=== PATIENT | female | born 1995 | race Caucasian/White ===

== ENCOUNTER 2017-12-22 12:15 | Inpatient (IN) | payer OTHER ==
[2017-12-22] MEDS: LACTATED RINGER'S 1,000 ML IV (13:55)
[2017-12-22] MEDS: BETAMET NA PHOS/AC(6 MG/ML) 5ML INJ IM (13:57)
[2017-12-22] MEDS ORDERED: AL HYDROX/MG HYDROX/SIMETH 30 ML CUP PO (14:00)
[2017-12-22] MEDS: MAGNESIUM SULFATE 4 GM/100 ML 100 ML IV (14:02)
[2017-12-22] MEDS: MAGNESIUM SULFATE 20 GM/500 ML 500 ML IV (14:28)
[2017-12-22 14:59] LABS: ADD UMIC NO; UR ASCORBIC ACID 40 mg/dL (NEGATIVE); UR BILIRUBIN (Dip) NEGATIVE (NEGATIVE); UR BLOOD (Dip) NEGATIVE (NEGATIVE); UR CLARITY CLEAR (CLEAR); UR COLOR STRAW (YELLOW); UR GLUCOSE (Dip) NEGATIVE (NEGATIVE); UR KETONES (Dip) 1+ mg/dL (NEGATIVE); UR LEUKOCYTE ESTERASE (Dip) NEGATIVE Leu/ul (NEGATIVE); UR NITRITE (Dip) NEGATIVE (NEGATIVE); UR SPECIFIC GRAVITY (Dip) 1.009 (1.003-1.030); UR TOTAL PROTEIN (Dip) NEGATIVE (NEGATIVE); UR UROBILINOGEN (Dip) NEGATIVE (NEGATIVE)
[2017-12-22 18:28] LABS: MAGNESIUM 3.9 mg/dl (1.7-2.5)
[2017-12-22] MEDS: DOCUSATE SODIUM 100 MG CAP PO (21:34)
[2017-12-23 00:28] LABS: MAGNESIUM 4.4 mg/dl (1.7-2.5)
[2017-12-23] MEDS: MAGNESIUM SULFATE 20 GM/500 ML 500 ML IV ×3 (00:39→18:50)
[2017-12-23] MEDS: LACTATED RINGER'S 1,000 ML IV ×2 (00:46→13:39)
[2017-12-23] MEDS: DOCUSATE SODIUM 100 MG CAP PO ×2 (08:19→20:25)
[2017-12-23] MEDS: PRENATAL VITAMIN PO (08:19)
[2017-12-23] MEDS: ACETAMINOPHEN 325 MG TAB PO (09:45)
[2017-12-23 13:22] LABS: MAGNESIUM 5.1 mg/dl (1.7-2.5)
[2017-12-23] MEDS: BETAMET NA PHOS/AC(6 MG/ML) 5ML INJ IM (13:38)
[2017-12-23 18:51] LABS: MAGNESIUM 4.6 mg/dl (1.7-2.5)
[2017-12-24 00:21] LABS: MAGNESIUM 4.6 mg/dl (1.7-2.5)
[2017-12-24] MEDS: LACTATED RINGER'S 1,000 ML IV ×2 (02:04→15:13)
[2017-12-24] MEDS: MAGNESIUM SULFATE 20 GM/500 ML 500 ML IV (03:53)
[2017-12-24] MEDS: DOCUSATE SODIUM 100 MG CAP PO ×2 (09:26→21:30)
[2017-12-24] MEDS: PRENATAL VITAMIN PO (09:27)
[2017-12-24] MEDS ORDERED: NIFEdipine 10 MG CAP PO (21:00)
[2017-12-24] MEDS: NIFEdipine 10 MG CAP PO (23:34)
[2017-12-25] MEDS: NIFEdipine 10 MG CAP PO ×4 (06:17→23:49)
[2017-12-25] MEDS: PRENATAL VITAMIN PO (08:57)
[2017-12-25] MEDS: DOCUSATE SODIUM 100 MG CAP PO ×2 (08:57→21:05)
[2017-12-26] MEDS: NIFEdipine 10 MG CAP PO ×3 (05:43→18:30)
[2017-12-26] MEDS: PRENATAL VITAMIN PO (08:38)
[2017-12-26] MEDS: DOCUSATE SODIUM 100 MG CAP PO ×2 (08:39→21:05)
[2017-12-27] MEDS: NIFEdipine 10 MG CAP PO ×4 (05:52→19:18)
[2017-12-27] MEDS: PRENATAL VITAMIN PO (08:41)
[2017-12-27] MEDS: DOCUSATE SODIUM 100 MG CAP PO ×2 (08:41→21:00)
[2017-12-28] MEDS: NIFEdipine 10 MG CAP PO ×5 (00:32→23:52)
[2017-12-28] MEDS: PRENATAL VITAMIN PO (09:23)
[2017-12-28] MEDS: DOCUSATE SODIUM 100 MG CAP PO ×2 (09:23→21:15)
[2017-12-29] MEDS: NIFEdipine 10 MG CAP PO ×4 (05:44→23:43)
[2017-12-29] MEDS: DOCUSATE SODIUM 100 MG CAP PO ×2 (08:15→21:10)
[2017-12-29] MEDS: PRENATAL VITAMIN PO (08:15)
[2017-12-30] MEDS: NIFEdipine 10 MG CAP PO ×4 (05:37→23:53)
[2017-12-30] MEDS: DOCUSATE SODIUM 100 MG CAP PO ×2 (08:41→21:14)
[2017-12-30] MEDS: PRENATAL VITAMIN PO (08:41)
[2017-12-31] MEDS: NIFEdipine 10 MG CAP PO ×3 (05:52→18:18)
[2017-12-31] MEDS: PRENATAL VITAMIN PO (09:06)
[2017-12-31] MEDS: DOCUSATE SODIUM 100 MG CAP PO ×2 (09:06→21:14)
[2017-12-31] MEDS: CALCIUM/VITAMIN D (500/200) TAB PO (21:14)
[2017-12-31] MEDS: FERROUS SULFATE (EC) 325 MG TAB PO (21:14)
[2018-01-01] MEDS: NIFEdipine 10 MG CAP PO ×4 (00:05→18:32)
[2018-01-01] MEDS: DOCUSATE SODIUM 100 MG CAP PO ×2 (08:43→21:18)
[2018-01-01] MEDS: PRENATAL VITAMIN PO (08:43)
[2018-01-01] MEDS: FERROUS SULFATE (EC) 325 MG TAB PO (21:18)
[2018-01-01] MEDS: CALCIUM/VITAMIN D (500/200) TAB PO (21:18)
[2018-01-02] MEDS: NIFEdipine 10 MG CAP PO ×4 (00:02→18:07)
[2018-01-02] MEDS: PRENATAL VITAMIN PO (08:32)
[2018-01-02] MEDS: DOCUSATE SODIUM 100 MG CAP PO ×2 (08:32→21:10)
[2018-01-02 15:27] LABS: ADD UMIC YES; UR ASCORBIC ACID NEGATIVE (NEGATIVE); UR BILIRUBIN (Dip) NEGATIVE (NEGATIVE); UR BLOOD (Dip) 1+ mg/dL (NEGATIVE); UR CLARITY CLEAR (CLEAR); UR COLOR STRAW (YELLOW); UR GLUCOSE (Dip) NEGATIVE (NEGATIVE); UR KETONES (Dip) TRACE mg/dL (NEGATIVE); UR LEUKOCYTE ESTERASE (Dip) NEGATIVE Leu/ul (NEGATIVE); UR NITRITE (Dip) NEGATIVE (NEGATIVE); UR RBC 0 /HPF (0-5); UR SPECIFIC GRAVITY (Dip) 1.004 (1.003-1.030); UR TOTAL PROTEIN (Dip) NEGATIVE (NEGATIVE); UR UROBILINOGEN (Dip) NEGATIVE (NEGATIVE); UR WBC 1 /HPF (0-5)
[2018-01-02 15:55] LABS: RUPTURE FETAL MEMBRANES NEGATIVE (NEGATIVE)
[2018-01-02] MEDS: FERROUS SULFATE (EC) 325 MG TAB PO (21:10)
[2018-01-02] MEDS: CALCIUM/VITAMIN D (500/200) TAB PO (21:11)
[2018-01-03] MEDS: NIFEdipine 10 MG CAP PO ×5 (00:09→23:51)
[2018-01-03] MEDS: PRENATAL VITAMIN PO (08:48)
[2018-01-03] MEDS: DOCUSATE SODIUM 100 MG CAP PO ×2 (08:48→21:40)
[2018-01-03] MEDS: CALCIUM/VITAMIN D (500/200) TAB PO (21:40)
[2018-01-03] MEDS: FERROUS SULFATE (EC) 325 MG TAB PO (21:40)
[2018-01-04] MEDS: NIFEdipine 10 MG CAP PO ×4 (06:00→23:54)
[2018-01-04] MEDS: PRENATAL VITAMIN PO (10:04)
[2018-01-04] MEDS: DOCUSATE SODIUM 100 MG CAP PO ×2 (10:04→21:12)
[2018-01-04] MEDS: CALCIUM/VITAMIN D (500/200) TAB PO (21:12)
[2018-01-04] MEDS: FERROUS SULFATE (EC) 325 MG TAB PO (21:12)
[2018-01-05] MEDS: NIFEdipine 10 MG CAP PO ×3 (05:43→18:01)
[2018-01-05] MEDS: PRENATAL VITAMIN PO (08:23)
[2018-01-05] MEDS: DOCUSATE SODIUM 100 MG CAP PO ×2 (08:23→21:23)
[2018-01-05] MEDS: FERROUS SULFATE (EC) 325 MG TAB PO (21:23)
[2018-01-05] MEDS: CALCIUM/VITAMIN D (500/200) TAB PO (21:23)
[2018-01-06] MEDS: NIFEdipine 10 MG CAP PO ×5 (00:08→23:52)
[2018-01-06] MEDS: DOCUSATE SODIUM 100 MG CAP PO ×2 (08:14→21:13)
[2018-01-06] MEDS: PRENATAL VITAMIN PO (08:14)
[2018-01-06] MEDS: CALCIUM/VITAMIN D (500/200) TAB PO (21:13)
[2018-01-06] MEDS: FERROUS SULFATE (EC) 325 MG TAB PO (21:13)
[2018-01-07] MEDS: NIFEdipine 10 MG CAP PO ×3 (05:50→19:10)
[2018-01-07] MEDS: DOCUSATE SODIUM 100 MG CAP PO ×2 (08:54→21:19)
[2018-01-07] MEDS: PRENATAL VITAMIN PO (08:54)
[2018-01-07] MEDS: FERROUS SULFATE (EC) 325 MG TAB PO (21:19)
[2018-01-07] MEDS: CALCIUM/VITAMIN D (500/200) TAB PO (21:19)
[2018-01-08] MEDS: NIFEdipine 10 MG CAP PO ×5 (00:40→23:45)
[2018-01-08] MEDS: PRENATAL VITAMIN PO (09:25)
[2018-01-08] MEDS: DOCUSATE SODIUM 100 MG CAP PO ×2 (09:25→21:01)
[2018-01-08] MEDS: FERROUS SULFATE (EC) 325 MG TAB PO (21:01)
[2018-01-08] MEDS: CALCIUM/VITAMIN D (500/200) TAB PO (21:02)
[2018-01-09] MEDS: NIFEdipine 10 MG CAP PO ×4 (05:48→23:36)
[2018-01-09] MEDS: DOCUSATE SODIUM 100 MG CAP PO ×2 (09:03→20:52)
[2018-01-09] MEDS: PRENATAL VITAMIN PO (09:03)
[2018-01-09] MEDS: FERROUS SULFATE (EC) 325 MG TAB PO (20:52)
[2018-01-09] MEDS: CALCIUM/VITAMIN D (500/200) TAB PO (20:52)
[2018-01-10] MEDS: NIFEdipine 10 MG CAP PO ×3 (06:18→17:38)
[2018-01-10] MEDS: PRENATAL VITAMIN PO (08:20)
[2018-01-10] MEDS: DOCUSATE SODIUM 100 MG CAP PO ×2 (08:20→20:57)
[2018-01-10] MEDS: FERROUS SULFATE (EC) 325 MG TAB PO (20:57)
[2018-01-10] MEDS: CALCIUM/VITAMIN D (500/200) TAB PO (20:57)
[2018-01-11] MEDS: NIFEdipine 10 MG CAP PO ×5 (00:12→23:54)
[2018-01-11] MEDS: PRENATAL VITAMIN PO (08:49)
[2018-01-11] MEDS: DOCUSATE SODIUM 100 MG CAP PO ×2 (08:49→21:21)
[2018-01-11] MEDS: CALCIUM/VITAMIN D (500/200) TAB PO (21:21)
[2018-01-11] MEDS: FERROUS SULFATE (EC) 325 MG TAB PO (21:21)
[2018-01-12] MEDS: NIFEdipine 10 MG CAP PO ×3 (05:44→18:39)
[2018-01-12] MEDS: PRENATAL VITAMIN PO (10:00)
[2018-01-12] MEDS: DOCUSATE SODIUM 100 MG CAP PO (10:00)
== END 2018-01-12 20:45 | disposition home or self-care (01) | DRG 782 ==
LOC: OBT 12:15 → L-D 12:19 → OBT 13:29 → PP1 13:32
DX: O26.872 Cervical shortening, second trimester (principal); Z3A.23 23 weeks gestation of pregnancy
CPT/HCPCS: 76815; 76817; 81001; 81003; 83735; 84112; 87086

== ENCOUNTER 2018-01-19 20:28 | Outpatient (CLI) | payer OTHER ==
[2018-01-19 21:53] LABS: ADD UMIC YES; UR ASCORBIC ACID NEGATIVE (NEGATIVE); UR BILIRUBIN (Dip) NEGATIVE (NEGATIVE); UR BLOOD (Dip) 2+ mg/dL (NEGATIVE); UR CLARITY SLIGHTLY CLOUDY (CLEAR); UR COLOR YELLOW (YELLOW); UR GLUCOSE (Dip) NEGATIVE (NEGATIVE); UR KETONES (Dip) NEGATIVE (NEGATIVE); UR LEUKOCYTE ESTERASE (Dip) NEGATIVE Leu/ul (NEGATIVE); UR NITRITE (Dip) NEGATIVE (NEGATIVE); UR RBC 3 /HPF (0-5); UR SQUAMOUS EPITHELIAL CELL FEW /HPF (FEW); UR TOTAL PROTEIN (Dip) NEGATIVE (NEGATIVE); UR UROBILINOGEN (Dip) NEGATIVE (NEGATIVE); UR WBC 2 /HPF (0-5)
[2018-01-19 22:38] LABS: RUPTURE FETAL MEMBRANES NEGATIVE (NEGATIVE)
== END 2018-01-19 23:31 | disposition home or self-care (01) ==
LOC: OBT 20:28 → L-D 20:29 → OBT 23:31
DX: O42.912 Preterm premature rupture of membranes, unspecified as to length of time between rupture and onset of labor, second trimester (principal); Z3A.27 27 weeks gestation of pregnancy
CPT/HCPCS: 76817; 76818; 81001; 84112

== ENCOUNTER 2018-03-26 11:45 | Inpatient (IN) | payer OTHER ==
[2018-03-26] MEDS: LACTATED RINGER'S 1,000 ML IV ×3 (13:13→21:04)
[2018-03-26] MEDS: NIFEdipine 10 MG CAP PO (17:46)
[2018-03-27] MEDS: NIFEdipine 10 MG CAP PO ×3 (00:34→11:50)
[2018-03-27] MEDS: LACTATED RINGER'S 1,000 ML IV ×2 (03:54→10:36)
[2018-03-27] MEDS: PRENATAL VITAMIN PO (09:19)
== END 2018-03-27 12:30 | disposition home or self-care (01) | DRG 782 ==
LOC: L-D 11:45
DX: O41.03X0 Oligohydramnios, third trimester, not applicable or unspecified (principal); O13.3 Gestational [pregnancy-induced] hypertension without significant proteinuria, third trimester; Z3A.36 36 weeks gestation of pregnancy
CPT/HCPCS: 76815

== ENCOUNTER 2018-03-30 17:26 | Outpatient (CLI) | payer OTHER ==
[2018-03-30 19:55] LABS: ADD MAN DIFF? NO
[2018-03-30 20:04] LABS: WHITE BLOOD COUNT 10.3 10^3/ul (4.8-10.8)
[2018-03-30 20:04] LABS: BASOPHILS % 0.3 % (0.0-2.0); EOSINOPHILS % 0.3 % (0.0-7.0); HEMOGLOBIN 12.3 g/dl (12.0-16.0); LYMPHOCYTES # 2.8 10^3/ul (0.8-2.9); LYMPHOCYTES % 27.2 % (15.0-51.0); MEAN CORPUSCULAR HEMOGLOBIN 30.1 pg (29.0-33.0); MEAN CORPUSCULAR HGB CONC 33.2 g/dl (32.0-37.0); MEAN CORPUSCULAR VOLUME 90.5 fl (82.0-101.0); MEAN PLATELET VOLUME 10.4 fl (7.4-10.4); MONOCYTE # 0.7 10^3/ul (0.3-0.9); MONOCYTES % 6.9 % (0.0-11.0); NEUTROPHIL # 6.6 10^3/ul (1.6-7.5); NEUTROPHILS % 64.3 % (39.0-77.0); PLATELET COUNT 279 10^3/UL (140-415); RED BLOOD COUNT 4.09 10^6/ul (4.20-5.40); RED CELL DISTRIBUTION WIDTH 13.8 % (11.5-14.5)
[2018-03-30 20:11] LABS: ADD UMIC NO; UR ASCORBIC ACID NEGATIVE (NEGATIVE); UR BILIRUBIN (Dip) NEGATIVE (NEGATIVE); UR BLOOD (Dip) NEGATIVE (NEGATIVE); UR CLARITY CLEAR (CLEAR); UR COLOR YELLOW (YELLOW); UR GLUCOSE (Dip) NEGATIVE (NEGATIVE); UR KETONES (Dip) NEGATIVE (NEGATIVE); UR LEUKOCYTE ESTERASE (Dip) NEGATIVE Leu/ul (NEGATIVE); UR NITRITE (Dip) NEGATIVE (NEGATIVE); UR SPECIFIC GRAVITY (Dip) 1.014 (1.003-1.030); UR TOTAL PROTEIN (Dip) NEGATIVE (NEGATIVE); UR UROBILINOGEN (Dip) NEGATIVE (NEGATIVE)
[2018-03-30 20:19] LABS: ALANINE AMINOTRANSFERASE 14 IU/L (13-69); ALBUMIN 3.4 g/dl (3.3-4.9); ALBUMIN/GLOBULIN RATIO 1.09; ALKALINE PHOSPHATASE 227 IU/L (42-121); ANION GAP 11 (8-16); ASPARTATE AMINO TRANSFERASE 14 IU/L (15-46); BILIRUBIN,INDIRECT 0.3 mg/dl (0-1.1); BILIRUBIN,TOTAL 0.3 mg/dl (0.2-1.3); BLOOD UREA NITROGEN 11 mg/dl (7-20); CARBON DIOXIDE 23 mmol/L (21-31); CHLORIDE 108 mmol/L (97-110); CREATININE 0.53 mg/dl (0.44-1.00); GLUCOSE 77 mg/dl (70-220); SODIUM 138 mmol/L (135-144); TOTAL PROTEIN 6.5 g/dl (6.1-8.1); URIC ACID 4.7 mg/dl (3.1-7.9)
[2018-03-30] MEDS: NIFEdipine 10 MG CAP PO (21:13)
== END 2018-03-30 22:17 | disposition home or self-care (01) ==
LOC: OBT 17:26 → L-D 17:27 → OBT 22:17
DX: O76 Abnormality in fetal heart rate and rhythm complicating labor and delivery (principal); Z3A.37 37 weeks gestation of pregnancy
CPT/HCPCS: 80053; 81003; 84560; 85025

== ENCOUNTER 2018-03-31 15:30 | Outpatient (CLI) | payer OTHER | END 2018-03-31 17:39 | disposition home or self-care (01) | LOC: OBT 15:30 → L-D 15:32 → OBT 17:39 | DX: O36.8330 Maternal care for abnormalities of the fetal heart rate or rhythm, third trimester, not applicable or unspecified (principal); Z3A.37 37 weeks gestation of pregnancy | CPT/HCPCS: Z7500 ==

== ENCOUNTER 2018-04-01 11:18 | Inpatient (IN) | payer OTHER ==
[2018-04-01] MEDS ORDERED: METHYLERGONOVINE 0.2 MG INJ IM (12:00)
[2018-04-01] MEDS ORDERED: CARBOPROST 250 MCG INJ IM (12:00)
[2018-04-01] MEDS ORDERED: OXYTOCIN 30 UNITS/LR 500 ML IV (12:00)
[2018-04-01] MEDS ORDERED: MISOPROSTOL 200 MCG TAB PR (12:00)
[2018-04-01] MEDS ORDERED: LIDOCAINE 1% (MPF) 30 ML INJ INJ (12:00)
[2018-04-01] MEDS ORDERED: MISOPROSTOL 100 MCG TAB PO (13:00)
[2018-04-01] MEDS: LACTATED RINGER'S 1,000 ML IV* ×2 (13:04→21:26)
[2018-04-01] MEDS: AMPICILLIN 2 GM/NS (PMX) 100 ML IVPB (13:04)
[2018-04-01] MEDS: MISOPROSTOL 25 MCG CAPSULE PO ×3 (13:05→21:54)
[2018-04-01 13:15] LABS: ADD UMIC NO; UR ASCORBIC ACID NEGATIVE (NEGATIVE); UR BILIRUBIN (Dip) NEGATIVE (NEGATIVE); UR BLOOD (Dip) NEGATIVE (NEGATIVE); UR CLARITY CLEAR (CLEAR); UR COLOR YELLOW (YELLOW); UR GLUCOSE (Dip) NEGATIVE (NEGATIVE); UR KETONES (Dip) NEGATIVE (NEGATIVE); UR LEUKOCYTE ESTERASE (Dip) NEGATIVE Leu/ul (NEGATIVE); UR NITRITE (Dip) NEGATIVE (NEGATIVE); UR SPECIFIC GRAVITY (Dip) 1.012 (1.003-1.030); UR TOTAL PROTEIN (Dip) NEGATIVE (NEGATIVE); UR UROBILINOGEN (Dip) NEGATIVE (NEGATIVE)
[2018-04-01 13:19] LABS: ADD MAN DIFF? NO
[2018-04-01 13:25] LABS: WHITE BLOOD COUNT 10.7 10^3/ul (4.8-10.8)
[2018-04-01 13:25] LABS: BASOPHILS % 0.3 % (0.0-2.0); EOSINOPHILS # 0.1 10^3/ul (0.0-0.5); EOSINOPHILS % 0.5 % (0.0-7.0); HEMATOCRIT 37.7 % (37.0-47.0); HEMOGLOBIN 12.7 g/dl (12.0-16.0); LYMPHOCYTES # 2.5 10^3/ul (0.8-2.9); LYMPHOCYTES % 23.1 % (15.0-51.0); MEAN CORPUSCULAR HEMOGLOBIN 29.6 pg (29.0-33.0); MEAN CORPUSCULAR HGB CONC 33.7 g/dl (32.0-37.0); MEAN CORPUSCULAR VOLUME 87.9 fl (82.0-101.0); MEAN PLATELET VOLUME 10.5 fl (7.4-10.4); MONOCYTE # 0.7 10^3/ul (0.3-0.9); MONOCYTES % 6.2 % (0.0-11.0); NEUTROPHIL # 7.5 10^3/ul (1.6-7.5); NEUTROPHILS % 69.5 % (39.0-77.0); PLATELET COUNT 306 10^3/UL (140-415); RED BLOOD COUNT 4.29 10^6/ul (4.20-5.40)
[2018-04-01 13:45] LABS: INR 0.77; PARTIAL THROMBOPLASTIN TIME 26.9 Sec (25.0-35.0); PROTIME 10.8 Sec (11.9-14.9); PT RATIO 0.8
[2018-04-01 13:48] LABS: ALANINE AMINOTRANSFERASE 15 IU/L (13-69); ALBUMIN 3.4 g/dl (3.3-4.9); ALBUMIN/GLOBULIN RATIO 1.06; ALKALINE PHOSPHATASE 265 IU/L (42-121); ANION GAP 12 (8-16); ASPARTATE AMINO TRANSFERASE 21 IU/L (15-46); BILIRUBIN,INDIRECT 0.3 mg/dl (0-1.1); BILIRUBIN,TOTAL 0.3 mg/dl (0.2-1.3); BLOOD UREA NITROGEN 7 mg/dl (7-20); CARBON DIOXIDE 20 mmol/L (21-31); CHLORIDE 110 mmol/L (97-110); CREATININE 0.55 mg/dl (0.44-1.00); GLUCOSE 104 mg/dl (70-220); POTASSIUM 4.1 mmol/L (3.5-5.1); SODIUM 138 mmol/L (135-144); TOTAL PROTEIN 6.6 g/dl (6.1-8.1); URIC ACID 4.6 mg/dl (3.1-7.9)
[2018-04-01] MEDS: AMPICILLIN 1 GM/NS (PMX) 50 ML IVPB ×2 (17:22→21:26)
[2018-04-01 22:17] LABS: RAPID PLASMA REAGIN NONREACTIVE (NR)
[2018-04-02] MEDS: MISOPROSTOL 25 MCG CAPSULE PO ×6 (01:41→21:37)
[2018-04-02] MEDS: AMPICILLIN 1 GM/NS (PMX) 50 ML IVPB ×6 (01:41→21:10)
[2018-04-02] MEDS: BUTORPHANOL 2 MG INJ IV (04:20)
[2018-04-02] MEDS ORDERED: OXYTOCIN 30 UNITS/LR 500 ML IV (04:30)
[2018-04-02] MEDS: LACTATED RINGER'S 1,000 ML IV* ×3 (05:56→21:10)
[2018-04-02] MEDS ORDERED: FENTAnyl 2MCG/ML-ROPIV 0.2% 100 ML (12:12)
[2018-04-02] MEDS ORDERED: DIPHENHYDRAMINE 50 MG INJ IV (12:30)
[2018-04-02] MEDS ORDERED: NALOXONE (0.4 MG/ML) INJ IV (12:30)
[2018-04-02] MEDS ORDERED: ONDANSETRON 4 MG INJ IV (12:30)
[2018-04-02] MEDS: FENTAnyl 2MCG/ML-ROPIV 0.2% 100 ML BAG EPI (21:36)
[2018-04-02] MEDS: OXYTOCIN 30 UNITS/LR 500 ML IV ×2 (23:37→23:56)
[2018-04-03] MEDS: IBUPROFEN 600 MG TAB PO ×5 (01:07→23:48)
[2018-04-03] MEDS ORDERED: CARBOPROST 250 MCG INJ IM (01:30)
[2018-04-03] MEDS ORDERED: ACETAMINOPHEN 325 MG TAB PO (01:30)
[2018-04-03] MEDS ORDERED: OXYTOCIN 30 UNITS/LR 500 ML IV (01:30)
[2018-04-03] MEDS ORDERED: DIBUCAINE 1% 30 GM OINT PR (01:30)
[2018-04-03] MEDS ORDERED: MISOPROSTOL 200 MCG TAB PR (01:30)
[2018-04-03] MEDS: BENZOCAINE 20% 56 ML SPRAY TOP (03:24)
[2018-04-03] MEDS: LANOLIN 7 GM TUBE TOP (03:25)
[2018-04-03] MEDS: WITCH HAZEL/GLYCERIN PAD PR (03:25)
[2018-04-03] MEDS: LACTATED RINGER'S 1,000 ML IV* ×3 (04:07→19:00)
[2018-04-03 09:42] LABS: ADD MAN DIFF? NO
[2018-04-03 09:49] LABS: WHITE BLOOD COUNT 15.4 10^3/ul (4.8-10.8)
[2018-04-03 09:49] LABS: BASOPHILS % 0.2 % (0.0-2.0); EOSINOPHILS % 0.1 % (0.0-7.0); HEMATOCRIT 30.5 % (37.0-47.0); HEMOGLOBIN 10.5 g/dl (12.0-16.0); LYMPHOCYTES % 19.4 % (15.0-51.0); MEAN CORPUSCULAR HGB CONC 34.4 g/dl (32.0-37.0); MEAN PLATELET VOLUME 10.5 fl (7.4-10.4); MONOCYTE # 1.4 10^3/ul (0.3-0.9); MONOCYTES % 9.1 % (0.0-11.0); NEUTROPHIL # 10.9 10^3/ul (1.6-7.5); NEUTROPHILS % 70.7 % (39.0-77.0); PLATELET COUNT 236 10^3/UL (140-415); RED BLOOD COUNT 3.39 10^6/ul (4.20-5.40); RED CELL DISTRIBUTION WIDTH 13.8 % (11.5-14.5)
[2018-04-03] MEDS: HYDROCODONE/APAP (5/325) TAB PO (18:31)
[2018-04-03] MEDS: SENNA/DOCUSATE NA (8.6MG/50MG) TAB PO ×2 (21:00→21:27)
[2018-04-04] MEDS: LACTATED RINGER'S 1,000 ML IV* (01:15)
[2018-04-04] MEDS: IBUPROFEN 600 MG TAB PO ×2 (05:46→12:00)
[2018-04-04 06:42] LABS: ADD MAN DIFF? NO
[2018-04-04 06:45] LABS: WHITE BLOOD COUNT 11.6 10^3/ul (4.8-10.8)
[2018-04-04 06:45] LABS: BASOPHILS % 0.3 % (0.0-2.0); EOSINOPHILS # 0.1 10^3/ul (0.0-0.5); EOSINOPHILS % 0.9 % (0.0-7.0); HEMATOCRIT 30.6 % (37.0-47.0); LYMPHOCYTES # 4.2 10^3/ul (0.8-2.9); LYMPHOCYTES % 36.4 % (15.0-51.0); MEAN CORPUSCULAR HEMOGLOBIN 30.2 pg (29.0-33.0); MEAN CORPUSCULAR HGB CONC 32.7 g/dl (32.0-37.0); MEAN CORPUSCULAR VOLUME 92.4 fl (82.0-101.0); MEAN PLATELET VOLUME 10.4 fl (7.4-10.4); MONOCYTE # 0.7 10^3/ul (0.3-0.9); MONOCYTES % 6.4 % (0.0-11.0); NEUTROPHIL # 6.5 10^3/ul (1.6-7.5); NEUTROPHILS % 55.6 % (39.0-77.0); PLATELET COUNT 222 10^3/UL (140-415); RED BLOOD COUNT 3.31 10^6/ul (4.20-5.40); RED CELL DISTRIBUTION WIDTH 14.3 % (11.5-14.5)
[2018-04-04] MEDS: DIPHTH/TET/ACEL PERTUSS (ADULT) 0.5 ML VIAL IM* (09:00)
[2018-04-04] MEDS: SENNA/DOCUSATE NA (8.6MG/50MG) TAB PO (09:00)
[2018-04-04] MEDS: HYDROCODONE/APAP (5/325) TAB PO (10:36)
== END 2018-04-04 17:30 | disposition home or self-care (01) | DRG 774 ==
LOC: PP1 04-03 01:32 → L-D 11:18
PROC: 10E0XZZ Delivery of Products of Conception, External Approach (ICD-10-PCS; principal; 2018-04-02)
PROC: 0KQM0ZZ Repair Perineum Muscle, Open Approach (ICD-10-PCS; 2018-04-02)
DX: O41.03X0 Oligohydramnios, third trimester, not applicable or unspecified (principal); O10.02 Pre-existing essential hypertension complicating childbirth; O99.824 Streptococcus B carrier state complicating childbirth; O70.1 Second degree perineal laceration during delivery; Z37.0 Single live birth; Z3A.37 37 weeks gestation of pregnancy
CPT/HCPCS: 62319; 80053; 81003; 84560; 85025; 85610; 85730; 86592; 86850; 86900; 86901; 88307